=== PATIENT | female | born 1980 | race American Indian/Alaskan Native ===

== ENCOUNTER 2022-02-11 16:05 | Emergency (ER) | payer OTHER ==
[2022-02-11 18:27] VITALS: BP 114/74
[2022-02-11] MEDS ORDERED: LORazepam 2 MG/ML VIAL ONE (21:53)
[2022-02-12] MEDS ORDERED: HYDROcodone/ACETAMINOPHEN 5-325 MG TAB PO STA (00:49)
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
== END 2022-02-12 01:42 | disposition home or self-care (01) ==
LOC: ED 16:05
DX: M79.18 Myalgia, other site (principal); M54.2 Cervicalgia; Z88.8 Allergy status to other drugs, medicaments and biological substances; Z79.899 Other long term (current) drug therapy; V87.7XXA Person injured in collision between other specified motor vehicles (traffic), initial encounter; Y93.89 Activity, other specified; Y92.488 Other paved roadways as the place of occurrence of the external cause; Y99.8 Other external cause status
CPT/HCPCS: 99282; J2060